=== PATIENT | female | born 1940 | race Hispanic/Latino ===

== ENCOUNTER 2024-03-17 21:37 | Emergency (ER) | payer MEDICARE, OTHER ==
[~2024-03-17] VITALS: Ht 144.8 cm; Wt 73.5 kg
[2024-03-17] MEDS ORDERED: SODIUM CHLORIDE 0.9% 1000ML 1,000 ML IV STA (21:48)
[2024-03-17 22:10] LABS: BASOPHILS % 0.7 % (0.0-1.0); EOSINOPHILS # (AUTO) 0.1 (0.0-0.4); EOSINOPHILS % 2.6 % (0.0-6.0); HEMATOCRIT 36.6 % (34.2-44.1); HEMOGLOBIN 12.2 g/dL (12.0-16.0); LYMPHOCYTES # (AUTO) 1.3 (1.0-3.2); LYMPHOCYTES % 24.5 % (18.0-39.1); MEAN CORPUSCULAR HGB CONC 33.3 g/dL (31-35); MEAN CORPUSCULAR VOLUME 92.9 fL (81-99); MONOCYTES # (AUTO) 0.5 (0.2-0.8); MONOCYTES % 8.6 % (4.4-11.3); NEUTROPHILS # (AUTO) 3.5 (2.1-6.9); NEUTROPHILS % 63.4 % (38.7-80.0); PLATELET COUNT 115 x10e3/uL (140-360); RED BLOOD COUNT 3.94 x10e6/uL (3.6-5.1); RED CELL DISTRIBUTION WIDTH 14.7 % (11.7-14.4); WHITE BLOOD COUNT 5.47 x10e3/uL (4.8-10.8)
[2024-03-17 22:29] LABS: ALANINE AMINOTRANSFERASE 55 IU/L (0-55); ALBUMIN 3.1 g/dL (3.5-5.0); ALBUMIN/GLOBULIN RATIO 0.8 (0.8-2.0); ALKALINE PHOSPHATASE 174 IU/L (40-150); ANION GAP 13.9 mmol/L (8-16); BILIRUBIN,TOTAL 0.8 mg/dL (0.2-1.2); BLOOD UREA NITROGEN 19 mg/dL (7-26); BUN/CREATININE RATIO 23 (6-25); CALCIUM 8.9 mg/dL (8.4-10.2); CARBON DIOXIDE 24 mmol/L (22-29); CHLORIDE 109 mmol/L (98-107); CREATINE KINASE 89 IU/L (29-168); CREATININE, SERUM 0.84 mg/dL (0.57-1.11); EST GLOMERULAR FILTRATION RATE 68 ML/MIN (>=60); GLUCOSE 108 mg/dL (74-118); POTASSIUM 3.9 mmol/L (3.5-5.1); SODIUM 143 mmol/L (136-145); TOTAL PROTEIN 6.8 g/dL (6.5-8.1)
[2024-03-17 22:42] LABS: TROPONIN I < 0.05 ng/mL (0.0-0.40)
[2024-03-17 23:56] VITALS: BP 132/54; O2SAT 98
== END 2024-03-17 23:52 | disposition home or self-care (01) ==
LOC: ER 21:49
DX: I95.9 Hypotension, unspecified (principal); R00.2 Palpitations; I10 Essential (primary) hypertension; K21.9 Gastro-esophageal reflux disease without esophagitis; E78.5 Hyperlipidemia, unspecified; K74.60 Unspecified cirrhosis of liver; Z20.822 Contact with and (suspected) exposure to COVID-19
CPT/HCPCS: 36415; 71045; 80053; 82550; 83690; 83880; 84484; 85025; 93005; 99284; U0002

== ENCOUNTER → 2024-05-28 | Outpatient (REF) | payer MEDICARE, OTHER ==
[2024-05-28 13:38] LABS: BASOPHILS # (AUTO) 0.1 (0.0-0.1); BASOPHILS % 1.1 % (0.0-1.0); EOSINOPHILS # (AUTO) 0.2 (0.0-0.4); HEMATOCRIT 36.9 % (34.2-44.1); HEMOGLOBIN 11.6 g/dL (12.0-16.0); LYMPHOCYTES # (AUTO) 1.1 (1.0-3.2); LYMPHOCYTES % 22.8 % (18.0-39.1); MEAN CORPUSCULAR HEMOGLOBIN 28.8 pg (28-32); MEAN CORPUSCULAR HGB CONC 31.4 g/dL (31-35); MEAN CORPUSCULAR VOLUME 91.6 fL (81-99); MONOCYTES # (AUTO) 0.5 (0.2-0.8); MONOCYTES % 10.4 % (4.4-11.3); NEUTROPHILS # (AUTO) 2.8 (2.1-6.9); NEUTROPHILS % 60.7 % (38.7-80.0); PLATELET COUNT 132 x10e3/uL (140-360); RED BLOOD COUNT 4.03 x10e6/uL (3.6-5.1); RED CELL DISTRIBUTION WIDTH 14.8 % (11.7-14.4); WHITE BLOOD COUNT 4.61 x10e3/uL (4.8-10.8)
[2024-05-28 13:59] LABS: INR 1.21; PARTIAL THROMBOPLASTIN TIME 31.4 seconds (23.8-35.5); PROTHROMBIN TIME 16.1 seconds (11.9-14.5)
[2024-05-28 15:09] LABS: BODY FLUID APPEARANCE TURBID; BODY FLUID TYPE PERITONEAL
[2024-05-28 15:53] LABS: WBC,BODY FLUID 315 cells/uL
[2024-05-28 15:54] LABS: RBC,BODY FLUID 1000 cells/uL
[2024-05-28 19:04] LABS: LYMPHOCYTES,BODY FLUID 74 %; MONO/MACROPHG,BODY FLUID 23 %; NEUTROPHILS,BODY FLUID 3 %; TOTAL CELLS COUNTED (DIFF) 100
== END ==
LOC: US 13:00
PROVIDERS: ATTEND Nurse Practitioner
DX: R18.8 Other ascites (principal); K74.69 Other cirrhosis of liver
CPT/HCPCS: 36415; 49083; 82040; 84157; 85025; 85610; 85730; 87070; 87205; 88112; 89051; C1729; 88305

== ENCOUNTER → 2024-06-20 | Outpatient (REF) | payer MEDICARE, OTHER ==
[~2024-06-20] MED LIST: ALBUMIN 25% 12.5GM 50ML 100 ML IV ONE
[2024-06-20 09:44] LABS: BASOPHILS # (AUTO) 0.1 (0.0-0.1); BASOPHILS % 0.9 % (0.0-1.0); EOSINOPHILS # (AUTO) 0.2 (0.0-0.4); EOSINOPHILS % 2.6 % (0.0-6.0); HEMATOCRIT 37.7 % (34.2-44.1); HEMOGLOBIN 11.9 g/dL (12.0-16.0); LYMPHOCYTES # (AUTO) 1.1 (1.0-3.2); LYMPHOCYTES % 14.2 % (18.0-39.1); MEAN CORPUSCULAR HEMOGLOBIN 29.5 pg (28-32); MEAN CORPUSCULAR HGB CONC 31.6 g/dL (31-35); MEAN CORPUSCULAR VOLUME 93.3 fL (81-99); MONOCYTES # (AUTO) 0.8 (0.2-0.8); MONOCYTES % 9.8 % (4.4-11.3); NEUTROPHILS # (AUTO) 5.6 (2.1-6.9); NEUTROPHILS % 72.2 % (38.7-80.0); PLATELET COUNT 144 x10e3/uL (140-360); RED BLOOD COUNT 4.04 x10e6/uL (3.6-5.1); RED CELL DISTRIBUTION WIDTH 15.8 % (11.7-14.4); WHITE BLOOD COUNT 7.72 x10e3/uL (4.8-10.8)
[2024-06-20 09:59] LABS: INR 1.19; PROTHROMBIN TIME 15.7 seconds (11.9-14.5)
[2024-06-20 10:00] LABS: PARTIAL THROMBOPLASTIN TIME 31.6 seconds (23.8-35.5)
== END ==
LOC: US 09:13
PROVIDERS: ATTEND Nurse Practitioner
DX: R18.8 Other ascites (principal); K74.69 Other cirrhosis of liver
CPT/HCPCS: 36415; 49083; 85025; 85610; 85730; C1729

== ENCOUNTER 2025-08-01 13:59 | Emergency (ER) | payer MEDICARE ==
[~2025-08-01] VITALS: Ht 144.8 cm; Wt 73.5 kg
[2025-08-01 14:16] VITALS: TEMP 97.6
[2025-08-01] MEDS ORDERED: SPIRONOLACTONE50 MG PO (14:27)
[2025-08-01] MEDS ORDERED: CELECOXIB200 MG PO (14:27)
[2025-08-01] MEDS ORDERED: PANTOPRAZOLE SO40 MG PO (14:27)
[2025-08-01] MEDS ORDERED: GABAPENTIN300 MG PO (14:27)
[2025-08-01] MEDS ORDERED: HYDROXYZINE HCL25 MG PO (14:27)
[2025-08-01] MEDS ORDERED: MECLIZINE HCL25 MG PO (14:27)
[2025-08-01] MEDS ORDERED: FUROSEMIDE20 MG PO (14:27)
[2025-08-01] MEDS ORDERED: ALLOPURINOL100 MG PO (14:27)
[2025-08-01] MEDS ORDERED: LISINOPRIL20 MG PO (14:27)
[2025-08-01] MEDS ORDERED: ATENOLOL25 MG PO (14:27)
[2025-08-01 15:03] LABS: BASOPHILS % 0.9 % (0.0-1.0); EOSINOPHILS % 2.6 % (0.0-6.0); LYMPHOCYTES % 19.4 % (18.0-39.1); MONOCYTES % 9.3 % (4.4-11.3); NEUTROPHILS % 67.5 % (38.7-80.0); RED CELL DISTRIBUTION WIDTH 14.8 % (11.7-14.4)
[2025-08-01 15:04] LABS: LEUKOCYTE ESTERASE ,URINE SMALL (NEGATIVE); PROTEIN,URINE DIPSTICK NEGATIVE (NEGATIVE); URINE UROBILINOGEN 1 mg/dL (0.2 - 1)
[2025-08-01 15:16] LABS: EPITHELIAL CELLS,URINE MANY /LPF
[2025-08-01 15:18] LABS: EST GLOMERULAR FILTRATION RATE 44.0 ML/MIN (>=60)
[2025-08-01 17:00] VITALS: PULSE 67; RESP 18; O2SAT 95
== END 2025-08-01 18:48 | disposition home or self-care (01) ==
LOC: ER 14:21
DX: M25.511 Pain in right shoulder (principal); W01.0XXA Fall on same level from slipping, tripping and stumbling without subsequent striking against object, initial encounter; Y92.89 Other specified places as the place of occurrence of the external cause; I10 Essential (primary) hypertension; E78.5 Hyperlipidemia, unspecified; K74.60 Unspecified cirrhosis of liver; K21.9 Gastro-esophageal reflux disease without esophagitis; M10.9 Gout, unspecified
CPT/HCPCS: 36415; 70450; 72125; 80053; 81001; 82140; 85025; 87086; 99284